=== PATIENT | male | born 1990 | race Caucasian/White ===

== ENCOUNTER 2020-09-24 09:07 | Outpatient (CLI) | payer BC, OTHER ==
[~2020-09-24] VITALS: Ht 172.7 cm; Wt 81.6 kg
[2020-09-24] MEDS ORDERED: ACETAMINOPHEN 325 MG TAB PO ONE (09:45)
[2020-09-24 09:54] VITALS: BP 130/78
[2020-09-24] MEDS ORDERED: BAMLANIVIMAB 700MG/200ML 200 ML IV ONE (10:15)
[2020-09-24 10:30] VITALS: BP 130/78
[2020-09-24 10:39] LABS: Basophils # (auto) 0 10 ^3/uL (0-0.2); Basophils % (auto) 0.3 % (0.0-2.0); Eosinophils # (auto) 0 10 ^3/uL (0-0.8); Eosinophils % (auto) 0.1 % (0.0-7.0); Hematocrit 41.3 % (41.0-53.0); Hemoglobin 14.3 g/dL (13.5-17.5); Lymphocytes # (auto) 0.8 10 ^3/uL (0.4-5.4); Lymphocytes % (auto) 16.7 % (10.0-50.0); Mean Corpuscular Hemoglobin 29.5 pg (28.0-32.0); Mean Corpuscular Hgb Conc. 34.6 g/dL (32.0-36.0); Mean Corpuscular Volume 85.4 fL (80.0-100.0); Monocytes # (auto) 0.2 10 ^3/uL (0-1.3); Monocytes % (auto) 4.3 % (0.0-12.0); Neutrophils # (auto) 3.8 10 ^3/uL (1.6-8.6); Neutrophils % (auto) 78.6 % (37.0-80.0); Nucleated Red Blood Cells % 0.1 %; Platelet Count (auto) 121 10^3/uL (140-450); Red Blood Cells 4.84 10^6/uL (4.5-5.90); White Blood Cell 4.9 10^3/uL (4.4-10.8)
[2020-09-24 10:50] VITALS: BP 117/74
[2020-09-24 10:51] LABS: Potassium 3.8 mmol/L (3.5-5.1)
[2020-09-24 10:52] LABS: Albumin 3.3 g/dL (3.4-5.0); Calcium 7.8 mg/dL (8.5-10.1)
[2020-09-24 10:59] LABS: BUN/Creatinine Ratio 15.5; Bilirubin, Total 0.5 mg/dL (0.2-1.0); CRP High Sensitivity 3.88 mg/dL (< 0.3); Total Protein 7.1 g/dL (6.4-8.2)
[2020-09-24 11:20] VITALS: BP 114/79
[2020-09-24 11:45] VITALS: BP 129/80
[2020-09-24 12:10] VITALS: BP 120/86
== END 2020-09-24 12:13 | disposition home or self-care (01) ==
LOC: ER 09:07
PROVIDERS: ATTEND Internal Medicine
DX: Z23 Encounter for immunization (principal); U07.1 COVID-19; R91.8 Other nonspecific abnormal finding of lung field; R06.02 Shortness of breath; R06.00 Dyspnea, unspecified
CPT/HCPCS: 36415; 71045; 80053; 83615; 85025; 85379; 86141; M0239; Q0239